=== PATIENT | male | born 1940 | race Caucasian/White ===

== ENCOUNTER 2018-01-15 17:12 | Emergency (ER) | payer OTHER ==
[~2018-01-15] VITALS: Ht 180.3 cm; Wt 70.9 kg
[2018-01-15 18:12] LABS: HEMATOCRIT 36.5 % (38.0-50.0); HEMOGLOBIN 12.6 G/DL (12.5-16.6); MCHC 34.5 G/DL (30.0-36.0); MCV 98.4 FL (86-99); PLATELET COUNT 189 K/uL (156-360); RBC DIS.WIDTH-CV 12.2 % (11.8-14.6); RBC DIS.WIDTH-SD 44.5 % (39-53); RED BLOOD COUNT 3.71 M/uL (4.00-5.50); WHITE BLOOD COUNT 6.8 K/uL (4.1-10.2)
[2018-01-15 18:25] LABS: CHLORIDE 105 mEq/L (99-109); SODIUM 137 mEq/L (136-147)
[2018-01-15 18:26] LABS: GLUCOSE 101 mg/dL (70-99)
[2018-01-15 18:31] LABS: UREA NITROGEN (BUN) 21 mg/dL (9-23)
[2018-01-15 18:32] LABS: GFR ESTIMATE (CALCULATED) 35 mL/min/ (58.99-99999)
[2018-01-15 18:37] LABS: TROP-I INTERPRETATION NEGATIVE; TROPONIN-I 0.01 ng/mL (0.0-0.30)
[2018-01-15 18:58] LABS: MAGNESIUM 2.1 mg/dL (1.3-2.7)
[2018-01-15 19:58] LABS: APPEARANCE CLEAR ((CLEAR)); BILIRUBIN NEGATIVE; BLOOD NEGATIVE; COLOR YELLOW ((YELLOW)); GLUCOSE (STRIP) NEGATIVE; KETONES NEGATIVE; LEUKOCYTES NEGATIVE; NITRITE NEGATIVE; PROTEIN (STRIP) 30; SPECIFIC GRAVITY 1.014 (1.000-1.030); UROBILINOGEN 0.2 MG/DL (0.2-1.0)
[2018-01-15 20:57] VITALS: BP 147/69
== END 2018-01-15 21:32 | disposition left against medical advice (07) ==
LOC: EME 17:12
PROVIDERS: Physician Assistant
DX: R07.89 Other chest pain (principal); N28.9 Disorder of kidney and ureter, unspecified; R80.9 Proteinuria, unspecified; I25.2 Old myocardial infarction; Z95.0 Presence of cardiac pacemaker; Z95.5 Presence of coronary angioplasty implant and graft; Z87.891 Personal history of nicotine dependence
CPT/HCPCS: 71046; 71250; 80048; 81003; 83735; 84484; 85027; 93005; 99281; 99283